=== PATIENT | female | born 1930 | race Caucasian/White ===

== ENCOUNTER 2017-06-07 06:21 | Day surgery (SDC) | payer MEDICARE, BC ==
[2017-06-06 10:03] VITALS: BMI 35.0
[~2017-06-07 06:21] MED LIST: Cyclopentolate 1% Opth Drop 2 ML BOT FS SCH; Phenylephrine 2.5% Ophth Soln 5 ML BOT FS SCH
[2017-06-07] MEDS ORDERED: Cyclopentolate 1% Opth Drop 2 ML BOT ONE (06:59)
[2017-06-07] MEDS ORDERED: Phenylephrine 2.5% Ophth Soln 5 ML BOT ONE (06:59)
[2017-06-07] MEDS ORDERED: Midazolam HCl 2 mg/2 ml Vial ONE (08:38)
[2017-06-07] MEDS ORDERED: PROPOFOL 20 ML ONE (08:38)
[2017-06-07] MEDS ORDERED: Fentanyl 100 MCG/2 ML VIAL ONE (08:38)
[2017-06-07] MEDS ORDERED: Ondansetron HCl/PF 4 MG/2 ML Vial ONE ×2 (08:38→12:57)
[2017-06-07] MEDS ORDERED: Lidocaine 2% 10 ML INJ ONE (08:38)
--- NOTE | 2017-06-07 11:24 | OP ---
DATE OF SURGERY: 06/07/2017 PREOPERATIVE DIAGNOSIS: Dislocated intraocular lens. POSTOPERATIVE DIAGNOSIS: Dislocated intraocular lens. PROCEDURES PERFORMED: Pars plana vitrectomy, IOL repositioning, retinal hole, right eye. PROCEDURE IN DETAIL: The patient was identified in the preoperative holding area. Appropriate [facility] consent for the planned surgical procedure on the right eye had been obtained. The patient was t ransported to the operative suite. Appropriate cardiopulmonary monitoring was established. Local an esthesia was obtained using retrobulbar block. The patient was prepped and draped in the usual steri le manner for ophthalmic surgery on the right eye. Lid speculum was placed in the right eye. The 25 -gauge trocars placed in conjunctiva and sclera supratemporally, inferotemporally, and supranasally. Gloria pockets were created at the 1 and 7 o'clock positions. Paracenteses were created at 1 and 7 o'clock, 9-0 Prolene suture was introduced into the eye through the sclera, 1.5 mm posterior to the limbus at the 1 o'clock position passed through the 1 piece IOL haptic and back out through the eye e nding up superiorly. Similar procedure was performed inferiorly. The sutures were tightened centeri ng the intraocular lens and the IOL appeared stable. The sutures were tied under the sclera in the H offman pocket. Superiorly Gloria pocket was sutured closed with 6-0 plain gut suture. Pars plana v itrectomy was performed. 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 No other further holes, breaks or tears were identified. Trocars were removed. Eye was noted to retain pressure well. Retrobulbar Kenalog and subconjunctival Ancef were placed. Atropine and antibiotic ointment were placed and the eye was patched and shielded. Patient was taken to the postoperative recovery unit in good condition having suffered no immediate perioperative comp lications. DISCHARGE INSTRUCTIONS: The patient was instructed to keep patch and shield on, avoid lifting or hanna ding. Follow up with Dr. Parekh.
[2017-06-07] MEDS ORDERED: Lidocaine 1% PF 5 ML VIAL ONE (12:57)
[2017-06-07] MEDS ORDERED: PROPOFOL 200 MG/20 ML VIAL ONE (12:57)
== END 2017-06-07 10:40 | disposition home or self-care (01) ==
LOC: SDC 06:21
PROVIDERS: ATTEND Ophthalmology Retina Specialist
PROC: 08SJ3ZZ Reposition Right Lens, Percutaneous Approach (ICD-10-PCS; principal; 2017-06-07)
PROC: 08B43ZZ Excision of Right Vitreous, Percutaneous Approach (ICD-10-PCS; 2017-06-07)
PROC: 08QE3ZZ Repair Right Retina, Percutaneous Approach (ICD-10-PCS; 2017-06-07)
DX: T85.22XA Displacement of intraocular lens, initial encounter (principal); H33.321 Round hole, right eye; Z88.1 Allergy status to other antibiotic agents; Z88.7 Allergy status to serum and vaccine; Z88.8 Allergy status to other drugs, medicaments and biological substances; Z98.890 Other specified postprocedural states
CPT/HCPCS: J2001; J2250; J2405; J2704; J3010